=== PATIENT | male | born 1970 | race Caucasian/White ===

== ENCOUNTER → 2023-04-28 | Outpatient (CLI) | payer BC ==
--- NOTE | 2023-04-28 13:53 | P.SLEEP ---
History of Present Illness DATE: 04/28/2023 CONSULTATION/NEW PATIENT EVALUATION HISTORY OF PRESENT ILLNESS/SLEEP-WAKE EVALUATION: 52 year old gentleman had been evaluated in the sleep center for possible obstructive sleep apnea hypopnea syndrome. SLEEP SCHEDULE: Usually sleep schedule from 11 PM to 6:30 AM on weekdays and to 7:30 AM on weekend. FALLING ASLEEP: No problems with falling asleep, no TV in bedroom. DURING SLEEP: According to patient patient has loud snoring. Patient prefers to sleep on the stomach position only No history of hypnogogical hallucinations, sleep paralysis, or cataplexy. DURING THE DAY/WAKE STATE: Usually no significant sleepiness. [place] sleepiness scale is 3, which is normal. Patient doesn't take naps. PAST MEDICAL HISTORY: Grinding teeth. PAST SURGICAL HISTORY: None. MEDICATIONS: None. SOCIAL HISTORY: Negative for smoking or using alcohol. FAMILY HISTORY: Heart problems. REVIEW OF SYSTEMS: Snoring. No fevers. No double vision. No recent chest pain. No shortness of breath. No abdominal pain. No bleeding episodes. No blood in urine. No seizure episodes. PHYSICAL EXAMINATION: GENERAL: A pleasant patient without any distress. VITAL SIGNS: BP 118/65, HR 61, RR 16, weight 203.8 pounds, height 5 foot 10 inches, body mass index 29.1. HEENT: PERRLA, EOMI. Evaluation of oropharynx showed tongue protrudes midline, low position of soft palate Mallampati 34. NECK: Supple. No JVD. Thyroid is not palpable. 16-3/4 inches in circumference. LUNGS: Clear to percussion and to auscultation. Good air exchange. No wheezing or rhonchi. HEART: S1, S2 regular. No murmurs, gallops or rubs. ABDOMEN: Soft and nontender. Bowel sounds are present. No organomegaly appreciated. EXTREMITIES: No clubbing or cyanosis. ALINING INSPECTOR: Awake, alert, and oriented x3. Cranial nerves 2 to 7 intact. There is no fasciculation or atrophy noted. No focal deficits observed. ASSESSMENT: 1. Loud snoring, low position of soft palate Mallampati 34, borderline size of neck 16-3/4 inches in circumference. Possible obstructive sleep apnea hypopnea syndrome. 2. Overweight body mass index 29.1. 3. Grinding teeth. PLAN: 1. Home sleep apnea test for evaluation of patient's breathing during sleep. 2. Following plan after reading sleep study 3. Preferable position during sleep on the side. 4. No driving if patient feels any sleepiness. Patient is aware of civil and criminal liability for unsafe driving. 5. Sleep hygiene with regular sleep time for at least 7.5-8 hours. 6. Watching and losing weight. Thank you very much for referring this patient for consultation. Sincerely, Eliot Chaves MD, PhD, FAASM. Diplomat of [place] [employer], Sleep Medicine Board by [place] [employer] [place] [employer] [facility] [place] Past Medical History Past Medical History: No Reported History History of Any Multi-Drug Resistant Organisms: None Reported Past Surgical History: No Surgical Hx Reported Past Psychological History: No Psychological Hx Reported Past Alcohol Use History: None Reported Past Drug Use History: None Reported Medications and Allergies Home Medications Medication Instructions Recorded Confirmed Type Erythromycin Ophth Oint [Romycin 1 applic RIGHT EYE QID 5 Days #1 09/02/19 Rx Ophth Oint] tube Allergies Allergy/AdvReac Type Severity Reaction Status Date / Time No Known Allergies Allergy Verified 09/02/19 20:28 Sleep Note - Sleep Note Sleep Note: Temperature: Pulse Rate: Respiratory Rate: Blood Pressure: SpO2: Height: Weight: BMI: Neck Circumference:
== END ==
LOC: 3 N SLEEP 13:23
PROVIDERS: ATTEND Internal Medicine
DX: R06.83 Snoring (principal); E66.3 Overweight; Z68.29 Body mass index [BMI] 29.0-29.9, adult; G47.63 Sleep related bruxism
CPT/HCPCS: 99211

== ENCOUNTER → 2023-05-13 | Outpatient (CLI) | payer BC | LOC: 3 N SLEEP 16:36 | PROVIDERS: ATTEND Internal Medicine | DX: G47.33 Obstructive sleep apnea (adult) (pediatric) (principal) ==

== ENCOUNTER → 2023-06-28 | Outpatient (CLI) | payer BC ==
--- NOTE | 2023-06-28 14:14 | P.PN ---
Subjective DATE: 06/28/2023 FOLLOW UP VISIT. Patient returned to sleep center for follow-up discuss results of home sleep apnea test and following plan. I discuss results of home sleep apnea test with patient in details. Sleep test showed mild obstructive sleep apnea hypopnea syndrome with 638 episodes of snoring. . [place] sleepiness scale is 5 today. MEDICATIONS: None at the present time During physical exam: GENERAL: A pleasant patient without any distress. VITAL SIGNS: BP 129/88, HR 58, RR 12 , weight 206.4, temperature 97.4, oxygen s aturation at room air 98% . HEENT: PERRLA, EOMI. NECK: Supple. No JVD. LUNGS: Clear to percussion and to auscultation. Good air exchange. No wheezing or rhonchi. HEART: S1, S2 regular. ABDOMEN: Soft and nontender. EXTREMITIES: No clubbing or cyanosis. SEA CAPTAIN: Awake, alert, and oriented x3. No focal deficit. Impressions: 1. Obstructive sleep apnea hypopnea syndrome in mild range. 2. Snoring. 3. Blood pressure slightly increased in the office. 4. Overweight BMI 28.7. Plan: 1. I discussed with patient possibility of treatment of obstructive sleep apnea-hypopnea syndrome including CPAP, oral appliances, patient prefers to start treatment with CPAP. 2. Sleep hygiene with regular time in bed for at least 8 hours. 3. prescription for treatment with AutoPAP. 4. Precautions related to driving. No driving if feel any sleepiness. Patient is aware about civil and criminal liability for unsafe driving, promised to follow recommendations. 5. Follow up visit in 30-90 days after starting CPAP therapy. 6. Watching and losing weight. Thank you very much for allowing me to participate in the management of your patient. Eliot Chaves MD, PhD, FAASM. Diplomat of [place] [employer], Sleep Medicine Board by [place] [employer] Operator [facility] [place]
== END ==
LOC: 3 N SLEEP 13:24
PROVIDERS: ATTEND Internal Medicine
DX: G47.33 Obstructive sleep apnea (adult) (pediatric) (principal); E66.3 Overweight; R03.0 Elevated blood-pressure reading, without diagnosis of hypertension; Z68.28 Body mass index [BMI] 28.0-28.9, adult
CPT/HCPCS: 99212

== ENCOUNTER 2023-11-29 09:13 | Day surgery (SDC) | payer BC ==
[2023-11-26 11:27] VITALS: BMI 27.9
[~2023-11-29 09:13] MED LIST: LACTATED RINGERS 1,000 ML IV SCH
[2023-11-29] MEDS: LACTATED RINGERS 1,000 ML IV ONE (09:40)
[2023-11-29 10:13] VITALS: TEMP 96.9
[2023-11-29] MEDS ORDERED: PROPOFOL 10 MG/ML 20 ML VIAL IV ONE (10:23)
[2023-11-29 11:19] VITALS: BP 98/64; PULSE 49
[2023-11-29 11:20] VITALS: RESP 17
--- NOTE | 2023-11-29 12:03 | P.OP ---
Date of Procedure: 11/29/23 Preoperative Diagnosis: History of perirectal abscess Postoperative Diagnosis: Normal colonoscopy Procedure(s) Performed: Colonoscopy Anesthesia: MAC Surgeon: Mehdi Fernando Pathology: none sent Condition: stable Disposition: PACU Description of Procedure: N PROCEDURE: The patient was placed on the endoscopy table in the lateral position. Digital rectal examination was performed which revealed no abnormalities. The prostate was symmetrical without nodules. Flexible colonoscope was then placed in the patient's anus and passed throughout the entire colon. The ileocecal valve was visualized. The cecum, ascending, transverse, descending and sigmoid colon were normal. The rectum was normal as well. There were no masses, polyps or diverticula noted in the entire colon. SUMMARY OF FINDINGS: Normal colonoscopy.
== END 2023-11-29 11:30 | disposition home or self-care (01) ==
LOC: ORWHC2ENDO 09:13
PROVIDERS: ATTEND Surgery
DX: K61.1 Rectal abscess (principal); E78.5 Hyperlipidemia, unspecified; Z79.899 Other long term (current) drug therapy
CPT/HCPCS: 45378; J2704